=== PATIENT | male | born 1965 | race Two or more races ===

== ENCOUNTER 2022-05-31 00:38 | Emergency (ER) | payer OTHER ==
[~2022-05-31] VITALS: Ht 185.4 cm; Wt 90.7 kg
[2022-05-31] MEDS ORDERED: COZAAR25 MG PO (00:50)
[2022-05-31] MEDS ORDERED: ORPHENADRINE C100 MG PO (04:23)
[2022-05-31] MEDS ORDERED: KETO10TA2 PO (04:23)
== END 2022-05-31 04:32 ==
LOC: ER 00:38
DX: M54.50 Low back pain, unspecified (principal); Z88.0 Allergy status to penicillin; Z88.2 Allergy status to sulfonamides; I10 Essential (primary) hypertension; M62.838 Other muscle spasm